=== PATIENT | female | born 1995 | race Caucasian/White ===

== ENCOUNTER 2016-05-25 18:17 | Emergency (ER) | payer OTHER ==
[2016-05-25 19:59] LABS: BASO # 0.1 K/mm3 (0.0-0.2); BASO % 1.6 % (0.0-1.0); EOS # 0.1 K/mm3 (0.0-0.50); EOS % 1.7 % (0.0-3.0); LARGE UNSTAINED CELL # 0.1 K/mm3 (0.0-0.4); LARGE UNSTAINED CELL % 1.8 % (0.0-4.0); LYMPH # 2.4 K/mm3 (1.5-6.5); LYMPH % 28.2 % (24.0-44.0); MEAN CORPUSCULAR HEMOGLOBIN 28.8 pg (27.0-33.0); MEAN CORPUSCULAR HGB CONC 33.7 g/dl (32.0-36.5); MEAN CORPUSCULAR VOLUME 85.2 fl (80.0-96.0); MONO # 0.4 K/mm3 (0.0-0.8); MONO % 4.7 % (0.0-5.0); NEUTROPHILS # 4.9 K/mm3 (1.8-7.7); NEUTROPHILS % 62.1 % (36.0-66.0); PLATELET COUNT, AUTOMATED 317 k/mm3 (150-450); WHITE BLOOD COUNT 7.9 K/mm3 (4.0-10.0)
[2016-05-25 20:28] LABS: ANION GAP 9 MEQ/L (8-16); BLOOD UREA NITROGEN 8 MG/DL (7-18); CALCIUM LEVEL 9.1 MG/DL (8.5-10.1); CARBON DIOXIDE LEVEL 26 MEQ/L (21-32); CHLORIDE LEVEL 105 MEQ/L (98-107); GLUCOSE, FASTING 93 MG/DL (70-105); HCG, SERUM QUANTITATIVE 643 MIU/ML; POTASSIUM SERUM 3.6 MEQ/L (3.5-5.1); SODIUM LEVEL 140 MEQ/L (136-145)
--- NOTE | 2016-05-25 20:40 | REPUSA ---
Clinical history: bleeding. Findings: Real-time transabdominal ultrasound images of the pelvis were obtained. An anteverted uteru s is noted, measuring 8.1 x 4.4 x 6.1 cm. The uterus demonstrates normal echotexture and echogenicity . There is an intrauterine gestational sac with a mean sac diameter of 3.4 mm. No pole or yolk sac is identified at this time. There is no evidence of a subchorionic hemorrhage. The right ovary me asures 3.8 x 2.9 x 2.5 cm. The left ovary measures 2.4 x 2.0 x 2.1 cm. No adnexal masses are seen. Co apolinar Doppler flow is seen within both ovaries. There is trace amount of free fluid. Impression: Intrauterine gestational sac measuring 5 weeks by ultrasound measurements. No pole or yolk sac is identified at this time. The findings likely suggesting early , although miss ed an ectopic cannot completely be excluded. Follow-up with serial serum beta hCG levels is recommended for further evaluation.
--- NOTE | 2016-05-26 00:18 | EDDOCDS ---
Physician Documentation [facility] Name: Rebekah Soto Age: 20 yrs Sex: Female : 1995 Arrival Date: 05/25/2016 Time: 18:17 Bed I7 Private MD: Other - Complete Info On Cds Disposition: 05/25/16 22:33 Discharged to Home/Self Care. Impression: Threatened . - Condition is Stable. - Discharge Instructions: Threatened Miscarriage, Pelvic Rest. - Medication Reconciliation, Local Pharmacy Hours form. - Follow up: Raymundo Dickey OB; When: Tomorrow; Reason: Recheck today's complaints, Continuance of care. - Problem is new. - Symptoms have improved. - Notes: CALL RAYMUNDO DICKEY OB TOMORROW, TELL THE NURSE THAT YOU WERE SEEN IN THE ER, DR AVENDAÑO WAS CONSULTED. YOU ARE TO HAVE A STAT QUANT HCG DRAWN ON 05/28/16 IN THE AM AT [facility] AND THEN HAVE A FOLLOW UP APPOINTMENT ON 05/28/16 IN THE AFTERNOON WITH RAYMUNDO DICKEY OB. RETURN TO THE ER IF BLEEDING INTENSIFIES, INCREASED PAIN OR OTHER CONCERNING SYMPTOMS ARISE Historical: - Allergies: no known allergies; - Home Meds: 1. vits Unknown daily - PMHx: Migraines; - PSHx: none; - Social history: Smoking status: Patient/guardian denies using No barriers to communication noted, The patient speaks fluent [place]. - Family history: Not pertinent. - : The pt / caregiver states he / she is not on anticoagulants. Home medication list is obtained from the patient. - Exposure Risk Screening:: None identified. 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 6 in. (167.64 cm) (R); Pain 3/10; 22:54 BP 128 / 85; Pulse 99; Resp 18; Temp 98.1(O); Pulse Ox 100% on R/A; Pain 0/10; kb5 05/26 00:16 BP 137 / 92; Pulse 110; Resp 16; Temp 97.8(O); Pulse Ox 98% on R/A; Pain 0/10; jmb 05/25 18:19 Body Mass Index 26.63 (74.84 kg, 167.64 cm) gr2 MDM: 05/25 19:25 IV Saline Lock ordered. ck7 19:25 NS 0.9% 1000 ml IV at bolus once ordered. ck7 19:25 Set up pelvic ordered. ck7 19:25 CBC with Diff Ordered. EDMS 19:25 MED Profile Ordered. EDMS 19:25 Type & Screen Ordered. EDMS 19:25 UA Ordered. EDMS 19:26 Urine Culture Ordered. EDMS 19:26 Hcg, Serum Quantitative Ordered. EDMS 19:26 GC & Chlamydia Amplification Ordered. EDMS 19:26 Wet Prep Ordered. EDMS 19:27 US 1st trimester Ordered. EDMS 20:17 TRANSVAGINAL US Ordered. EDMS 20:19 DUPLEX SCAN LIMITED (DOPPLER) Ordered. EDMS 20:38 Financial registration complete. gjb 21:53 CBC with Diff Reviewed. ck7 21:53 UA Reviewed. ck7 21:53 MED Profile Reviewed. ck7 21:53 Type & Screen Reviewed. ck7 21:53 Hcg, Serum Quantitative Reviewed. ck7 21:53 Wet Prep Reviewed. ck7 21:53 US 1st trimester Reviewed. ck7 21:54 Recheck Vital Signs, perform reassessment and enter into [employer] ordered. ck7 22:07 -RhoGAM Ultra-Filtered Plus 300 mcg IM once ordered. ck7 22:24 [facility] Payment Agreement was scanned into [employer] and attached to record. gjb 23:06 RHOGAM Ordered. EDMS Administered Medications: 19:45 Drug: NS 0.9% 1000 ml [sodium chloride 0.9 % intravenous solution] Route: IV; Rate: jmb bolus; Site: left antecubital; 21:26 Follow up: IV Status: Completed infusion; IV Intake: 1000ml ms18 05/26 00:16 Drug: -RhoGAM Ultra-Filtered Plus 300 mcg [RhoGAM Ultra-Filtered PLUS 1,500 unit (300 jmb mcg) intramuscular syringe (300 mcg)] Route: IM; Site: right gluteus; Signatures: Dispatcher [employer] EDMS Alina Wen RN RN dls Kwaczala, Christopher, RPA-C RPA-Cck7 Deven Castillo,JUNG RN Jayshree Magaña Mallory RN [id number] The chart was reviewed and I authenticate all verbal orders and agree with the evaluation and treatment provided.Attachments: 05/25 22:24 [facility] Payment Agreement hannah MTDD
--- NOTE | 2016-05-26 00:18 | EDDOCDS ---
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 Risk factors: The patient reports no loss of conciousness prior to arrival. This patient has not had a hysterectomy. This patient has not begun menopause. Adult Sepsis Screening: The patient does not have new or worsening altered mentation. Patient's respiratory rate is less than 22. Systolic blood pressure is greater than 100. Patient has a qSOFA score of 0- Negative Sepsis Screen. Suicide/Homicide risk assessment- the patient denies having any suicidal and/or homicidal ideations and does not present with any other emotional, behavioral or mental health complaints. Status: The patient is a dependent. Transition of care: patient was not received from another setting of care. 18:21 Acuity: JAMESON Level 3 dls 18:21 Method Of Arrival: Walkin/Carried/Asstd dls Triage Assessment: 18:23 General: Appears in no apparent distress, well developed, well nourished, well groomed, dls Behavior is cooperative. Pain: Denies pain. Pain. HIV screening NA for this visit Offered previously. : Reports vaginal bleeding that is brown. 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 vits Unknown daily - PMHx: Migraines; - PSHx: none; - Social history: Smoking status: Patient/guardian denies using No barriers to communication noted, The patient speaks fluent [place]. - Family history: Not pertinent. - : The pt / caregiver states he / she is not on anticoagulants. Home medication list is obtained from the patient. - Exposure Risk Screening:: None identified. Screenin:46 Screening information is obtained from the patient. Fall risk: No risks identified. jmb Assistance ADL's: requires no assistance with activities of daily living. Abuse/DV Screen: The patient / caregiver reports he/she is: not in a situation that causes fear, pain or injury. Nutritional screening: No deficits noted. home support is adequate. 05/26 00:14 Advance Directives: Currently, there is no health care proxy. There is no active DNR jmb order. There is no living will. There is no Power of Program Planner. Assessment: 05/25 19:46 General: Appears in no apparent distress, comfortable, Behavior is appropriate for age, jmb cooperative. Pain: Denies pain. Neurological: Level of Consciousness is awake, alert, obeys commands, Oriented to person, place, time, Family Services Assistant are equal bilaterally Speech is normal, Facial symmetry appears normal, Facial symmetry: tongue is midline. Cardiovascular: Capillary refill < 3 seconds Heart tones present Pulses are all present. Rhythm is regular. Respiratory: Airway is patent Respiratory effort is even, unlabored, Respiratory pattern is regular, symmetrical, Breath sounds are clear bilaterally. GI: Abdomen is non- distended Bowel sounds present X 4 quads. Abd is soft X 4 quads. : Patient reports vaginal bleeding. Derm: Skin is pink, warm & dry. Musculoskeletal: Range of motion intact in all extremities. 20:46 General: Appears in no apparent distress, comfortable, Behavior is appropriate for age, jmb cooperative, Smells of. Neurological: Level of Consciousness is awake, alert, obeys commands, Oriented to person, place, time. Respiratory: Airway is patent Respiratory effort is even, unlabored, Respiratory pattern is regular, symmetrical. 21:30 General: Appears in no apparent distress, comfortable, Behavior is appropriate for age, jmb cooperative, Patient sitting on stretcher with friend at bedside. NO complaints voiced at this time. . Neurological: Level of Consciousness is awake, alert, obeys commands, Oriented to person, place, time. Respiratory: Airway is patent Respiratory effort is even, unlabored, Respiratory pattern is regular, symmetrical. 22:00 General: Appears in no apparent distress, comfortable, Behavior is appropriate for age, jmb cooperative. Neurological: Level of Consciousness is awake, alert, obeys commands, Oriented to person, place, time, Speech is normal. Cardiovascular: Capillary refill < 3 seconds Heart tones S1 S2 present Pulses are all present. Rhythm is regular. Respiratory: Airway is patent Respiratory effort is even, unlabored, Respiratory pattern is regular, symmetrical, Breath sounds are clear bilaterally. GI: Abdomen is non- distended Bowel sounds present X 4 quads. Abd is soft X 4 quads. Derm: Skin is pink, warm & dry. Musculoskeletal: Range of motion intact in all extremities. 05/26 00:14 General: Patient instructed on discharge instructions. Patient asked if there were any [facility] questions regarding discharge, patient stated no. IV discontinued per hospital policy. Patient signed discharge instructions. Patient discharged in stable condition. . Vital Signs: 05/25 18:19 BP 142 / 84; Pulse 108; Resp 18 S; Temp 97.1(O); Pulse Ox 100% on R/A; Weight 74.84 kg gr2 (R); Height 5 ft. 6 in. (167.64 cm) (R); Pain 3/10; 22:54 BP 128 / 85; Pulse 99; Resp 18; Temp 98.1(O); Pulse Ox 100% on R/A; Pain 0/10; kb5 05/26 00:16 BP 137 / 92; Pulse 110; Resp 16; Temp 97.8(O); Pulse Ox 98% on R/A; Pain 0/10; jmb 05/25 18:19 Body Mass Index 26.63 (74.84 kg, 167.64 cm) gr2 Vitals: 05/25 18:19 Log In Time: May 25, 2016 at 18:19. gr2 ED Course: 18:18 Patient visited by Concha Pascual. gr2 18:18 NO PRIMARY PHYSICIAN, . is Private Physician. gr2 18:18 Other - Complete Info On Cds is Private Physician. gr2 18:18 Patient moved to Waiting gr2 18:20 Patient visited by Concha Pascual. gr2 18:20 Patient moved to Pre RCE gr2 18:22 Triage Initiated dls 18:57 Patient moved to Triage 3 ms18 18:57 Patient moved to Pre RCE ms18 19:11 Patient moved to Triage 2 ms18 19:12 Dawson Armstrong RPA-C is PHCP. ck7 19:12 [place] DO is Attending Physician. ck7 19:12 Patient visited by Dawson Armstrong RPA-C. ck7 19:27 Patient moved to I b 19:45 Patient visited by Aron Cleary PCA. kb5 19:45 CBC with Diff Sent. deweyb 19:45 MED Profile Sent. patricia 19:45 Type & Screen Sent. patricia 19:46 The patient / caregiver is instructed regarding the plan of care and ED course. patricia 19:46 UA Sent. patricia 19:46 Urine Culture Sent. patricia 19:46 Hcg, Serum Quantitative Sent. patricia 19:46 Inserted saline lock: 20 gauge in left antecubital area and blood collected. The b patient tolerated the procedure well. Labs drawn. (by ED staff). Sent per order to lab. Urine collected. Clean catch specimen. 19:47 Patient visited by Deven Castillo,JUNG. jmb 19:58 Patient moved to Ultrasound dmg 20:22 Patient moved to I7 / dmg 20:32 Patient visited by Aron Cleary PCA. kb5 20:53 US 1st trimester Returned. EDMS 21:12 Patient visited by Dawson Armstrong RPA-C. ck7 21:20 Assist provider with pelvic exam: Set up pelvic tray. Specimens sent to lab. Performed ms18 by Dawson BUCKLEY Patient tolerated well. 21:24 Patient visited by Catarina Chaudhari RN. ms18 21:24 Wet Prep Sent. ms18 21:58 Patient visited by Dawson Armstrong RPA-C. ck7 22:03 Patient visited by Deven Castillo RN. jmb 22:24 [facility] Payment Agreement was scanned into [employer] and attached to record. gjb 22:32 Raymundo Bond, OB is Referral Physician. ck7 22:54 Patient visited by Aron Cleary PCA. kb5 05/26 00:14 Discontinued lock intact, bleeding controlled, pressure dressing applied, No patricia redness/swelling at site. 00:16 RHOGAM Sent. patricia Administered Medications: 05/25 19:45 Drug: NS 0.9% 1000 ml [sodium chloride 0.9 % intravenous solution] Route: IV; Rate: jmb bolus; Site: left antecubital; 21:26 Follow up: IV Status: Completed infusion; IV Intake: 1000ml ms18 05/26 00:16 Drug: -RhoGAM Ultra-Filtered Plus 300 mcg [RhoGAM Ultra-Filtered PLUS 1,500 unit (300 jmb mcg) intramuscular syringe (300 mcg)] Route: IM; Site: right gluteus; Intake: 05/25 21:26 IV: 1000.00ml; Total: 1000.00ml. ms18 Order Results: Lab Order: CBC with Diff; SPEC'M 05/25/16 19:42 Test: WHITE BLOOD COUNT; Value: 7.9; Range: 4.0-10.0; Units: K/mm3; Status: F Test: RED BLOOD COUNT; Value: 4.66; Range: 4.00-5.40; Units: M/mm3; Status: F Test: HEMOGLOBIN; Value: 13.4; Range: 12.0-16.0; Units: g/dl; Status: F Test: HEMATOCRIT; Value: 39.7; Range: 36.0-47.0; Units: %; Status: F Test: MEAN CORPUSCULAR VOLUME; Value: 85.2; Range: 80.0-96.0; Units: fl; Status: F Test: MEAN CORPUSCULAR HEMOGLOBIN; Value: 28.8; Range: 27.0-33.0; Units: pg; Status: F Test: MEAN CORPUSCULAR HGB CONC; Value: 33.7; Range: 32.0-36.5; Units: g/dl; Status: F Test: RED CELL DISTRIBUTION WIDTH; Value: 14.0; Range: 11.5-14.5; Units: %; Status: F Test: PLATELET COUNT, AUTOMATED; Value: 317; Range: 150-450; Units: k/mm3; Status: F Test: NEUTROPHILS %; Value: 62.1; Range: 36.0-66.0; Units: %; Status: F Test: LYMPH %; Value: 28.2; Range: 24.0-44.0; Units: %; Status: F Test: MONO %; Value: 4.7; Range: 0.0-5.0; Units: %; Status: F Test: EOS %; Value: 1.7; Range: 0.0-3.0; Units: %; Status: F Test: BASO %; Value: 1.6; Range: 0.0-1.0; Abnormal: Above high normal; Units: %; Status: F Test: LARGE UNSTAINED CELL %; Value: 1.8; Range: 0.0-4.0; Units: %; Status: F Test: NEUTROPHILS #; Value: 4.9; Range: 1.8-7.7; Units: K/mm3; Status: F Test: LYMPH #; Value: 2.4; Range: 1.5-6.5; Units: K/mm3; Status: F Test: MONO #; Value: 0.4; Range: 0.0-0.8; Units: K/mm3; Status: F Test: EOS #; Value: 0.1; Range: 0.0-0.50; Units: K/mm3; Status: F Test: BASO #; Value: 0.1; Range: 0.0-0.2; Units: K/mm3; Status: F Test: LARGE UNSTAINED CELL #; Value: 0.1; Range: 0.0-0.4; Units: K/mm3; Status: F Lab Order: MED Profile; SPEC'M 05/25/16 19:42 Test: GLUCOSE, FASTING; Value: 93; Range: 70-105; Units: MG/DL; Status: F Test: BLOOD UREA NITROGEN; Value: 8; Range: 7-18; Units: MG/DL; Status: F Test: CREATININE FOR GFR; Value: 0.70; Range: 0.55-1.02; Units: MG/DL; Status: F Test: SODIUM LEVEL; Value: 140; Range: 136-145; Units: MEQ/L; Status: F Test: POTASSIUM SERUM; Value: 3.6; Range: 3.5-5.1; Units: MEQ/L; Status: F Test: CHLORIDE LEVEL; Value: 105; Range: 98-107; Units: MEQ/L; Status: F Test: CARBON DIOXIDE LEVEL; Value: 26; Range: 21-32; Units: MEQ/L; Status: F Test: ANION GAP; Value: 9; Range: 8-16; Units: MEQ/L; Status: F Test: CALCIUM LEVEL; Value: 9.1; Range: 8.5-10.1; Units: MG/DL; Status: F Lab Order: Type & Screen; SPEC'05/25/16 19:42 Test: AB SCREEN (INDIRECT TRACIE)GEL; Value: NEGATIVE; Status: F Test: BLOOD TYPE; Value: A NEG; Status: F Test: AB SCREEN (INDIRECT TRACIE)GEL; Value: NEGATIVE; Status: F Lab Order: UA; SPEC'M 05/25/16 19:42 Test: APPEARANCE, URINE; Value: CLEAR; Range: CLEAR; Status: F Test: COLOR, URINE; Value: YELLOW; Range: YELLOW; Status: F Test: PH,URINE; Value: 7.0; Range: 5.0-9.0; Units: UNITS; Status: F Test: SPECIFIC GRAVITY URINE AUTO; Value: 1.010; Range: 1.002-1.035; Status: F Test: PROTEIN, URINE AUTO; Value: NEGATIVE; Range: NEGATIVE; Units: mg/dL; Status: F Test: GLUCOSE, URINE (UA) AUTO; Value: NEGATIVE; Range: NEGATIVE; Units: mg/dL; Status: F Test: KETONE, URINE AUTO; Value: NEGATIVE; Range: NEGATIVE; Units: mg/dL; Status: F Test: UROBILINOGEN, URINE AUTO; Value: 0.2; Range: 0.0-2.0; Units: mg/dL; Status: F Test: BILIRUBIN, URINE AUTO; Value: NEGATIVE; Range: NEGATIVE; Status: F Test: NITRITE, URINE AUTO; Value: NEGATIVE; Range: NEGATIVE; Status: F Test: LEUKOCYTE ESTERASE, URINE AUTO; Value: NEGATIVE; Range: NEGATIVE; Status: F Test: BLOOD, URINE BLOOD; Value: 3+; Range: NEGATIVE; Abnormal: Above high normal; Status: F Test: WBC, URINE AUTO; Value: 1; Range: 0-3; Units: /HPF; Status: F Test: RBC, URINE AUTO; Value: TNTC; Range: 0-3; Abnormal: Above high normal; Units: /HPF; Status: F Test: BACTERIA, URINE AUTO; Value: 1+; Range: NEGATIVE; Abnormal: Above high normal; Status: F Test: SQUAMOUS EPITHELIAL CELL UR AU; Value: 1; Range: 0-6; Units: /HPF; Status: F Test: MUCUS, URINE; Value: SMALL; Range: NEGATIVE; Status: F Test: HYALINE CAST, URINE AUTO; Value: 0; Range: 0-1; Units: /LPF; Status: F Lab Order: Hcg, Serum Quantitative; SPEC'M 05/25/16 19:42 Test: HCG, SERUM QUANTITATIVE; Value: 643; Units: MIU/ML; Status: F Test Note: ; GESTATIONAL AGE APPROXIMATE HCG RANGE (MIU/ML) 0.2-1 WEEK 5-50 1-2 WEEKS 50-500 2-3 WEEKS 100-5,000 3-4 WEEKS 500-10,000 4-5 WEEKS 1,000-50,000 5-6 WEEKS 10,000-100,000 6-8 WEEKS 15,000-200,000 2-3 MONTHS 10,000-100,000 NON FEMALES LESS THAN 3.0 Patient samples may contain human heterophilic antibodies that could react with immunoassays to give falsely elevated or depressed results. This assay has been designed to minimize interference from heterophilic antibodies. Elevated hCG levels have also been associated with trophoblastic disease and nontrophoblastic neoplasms. The possibility of having these diseases should be considered before a diagnosis of is made. This test is not intended for use as a surrogate marker for aiding in the diagnosis or monitoring the treatment of cancer patients. Siem[employer] PlayerPro methodology. Lab Order: Wet Prep; SPEC'M 05/25/16 21:14 Test: WET PREP; Value: WET PREP RESULT; Status: F Test: WET PREP; Value: MANY EPITHELIAL CELLS PRESENT; Status: F Test: WET PREP; Value: FEW WBC; Status: F Test: WET PREP; Value: MANY RBC; Status: F Test: WET PREP; Value: FEW SHORT RODS PRESENT; Status: F Radiology Order: US 1st trimester Test: US 1st trimester REASON FOR EXAMINATION: Bleeding; ; Clinical history: bleeding.; Findings: Real-time transabdominal ultrasound images of the pelvis were obtained. An anteverted uteru; s is noted, measuring 8.1 x 4.4 x 6.1 cm. The uterus demonstrates normal echotexture and echogenicity; . There is an intrauterine gestational sac with a mean sac diameter of 3.4 mm. No pole or yolk; sac is identified at this time. There is no evidence of a subchorionic hemorrhage. The right ovary me; asures 3.8 x 2.9 x 2.5 cm. The left ovary measures 2.4 x 2.0 x 2.1 cm. No adnexal masses are seen. Co; apolinar Doppler flow is seen within both ovaries. There is trace amount of free fluid.; Impression: Intrauterine gestational sac measuring 5 weeks by ultrasound measurements. No pole; or yolk sac is identified at this time. The findings likely suggesting early , although miss; ed an ectopic cannot completely be excluded. Follow-up with serial serum beta hCG; levels is recommended for further evaluation.; ; Outcome: 22:33 Discharge ordered by Provider. ck7 05/26 00:14 Discharge Assessment: Patient awake, alert and oriented x 3. No cognitive and/or jmb functional deficits noted. Patient verbalized understanding of disposition instructions. Patient awake and alert. obeys commands, Oriented to person, place and time. Patient verbalized understanding of disposition instructions. Patient has no functional deficits. patient administered narcotics - no. The following High Risk Discharge criteria are identified: None. Discharged to home ambulatory, with significant other. Condition: stable Condition: improved. Discharge instructions given to patient, Instructed on discharge instructions, follow up and referral plans. Demonstrated understanding of instructions, Pt was receptive of discharge instructions/ teaching. Ultrasound Study completed. Property sent home with patient. 00:17 Patient left the ED. patricia Signatures: Dispatcher [employer] EDAlina Thomas, RN Marija Burns Kristopher, PRACTICE SUPPORT SPECIALIST PRACTICE SUPPORT SPECIALIST kb5 Dawson Armstrong, RPA-C RPA-Cck7 Concha Pascual gr2 Deven Castillo RN RN jmb Smith, Mallory, RN RN [id number] Jayshree Paula MTDD
--- NOTE | 2016-05-28 01:18 | EDDOCDS ---
Nurse's Notes 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 Risk factors: The patient reports no loss of conciousness prior to arrival. This patient has not had a hysterectomy. This patient has not begun menopause. Adult Sepsis Screening: The patient does not have new or worsening altered mentation. Patient's respiratory rate is less than 22. Systolic blood pressure is greater than 100. Patient has a qSOFA score of 0- Negative Sepsis Screen. Suicide/Homicide risk assessment- the patient denies having any suicidal and/or homicidal ideations and does not present with any other emotional, behavioral or mental health complaints. Status: The patient is a dependent. Transition of care: patient was not received from another setting of care. 18:21 Acuity: JAMESON Level 3 dls 18:21 Method Of Arrival: Walkin/Carried/Asstd dls Triage Assessment: 18:23 General: Appears in no apparent distress, well developed, well nourished, well groomed, dls Behavior is cooperative. Pain: Denies pain. Pain. HIV screening NA for this visit Offered previously. : Reports vaginal bleeding that is brown. 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 vits Unknown daily - PMHx: Migraines; - PSHx: none; - Social history: Smoking status: Patient/guardian denies using No barriers to communication noted, The patient speaks fluent Tristanian. - Family history: Not pertinent. - : The pt / caregiver states he / she is not on anticoagulants. Home medication list is obtained from the patient. - Exposure Risk Screening:: None identified. Screenin:46 Screening information is obtained from the patient. Fall risk: No risks identified. jmb Assistance ADL's: requires no assistance with activities of daily living. Abuse/DV Screen: The patient / caregiver reports he/she is: not in a situation that causes fear, pain or injury. Nutritional screening: No deficits noted. home support is adequate. 05/26 00:14 Advance Directives: Currently, there is no health care proxy. There is no active DNR jmb order. There is no living will. There is no Power of Filler Shredder Machine. Assessment: 05/25 19:46 General: Appears in no apparent distress, comfortable, Behavior is appropriate for age, jmb cooperative. Pain: Denies pain. Neurological: Level of Consciousness is awake, alert, obeys commands, Oriented to person, place, time, Sweat Band Sewer are equal bilaterally Speech is normal, Facial symmetry appears normal, Facial symmetry: tongue is midline. Cardiovascular: Capillary refill < 3 seconds Heart tones present Pulses are all present. Rhythm is regular. Respiratory: Airway is patent Respiratory effort is even, unlabored, Respiratory pattern is regular, symmetrical, Breath sounds are clear bilaterally. GI: Abdomen is non- distended Bowel sounds present X 4 quads. Abd is soft X 4 quads. : Patient reports vaginal bleeding. Derm: Skin is pink, warm & dry. Musculoskeletal: Range of motion intact in all extremities. 20:46 General: Appears in no apparent distress, comfortable, Behavior is appropriate for age, jmb cooperative, Smells of. Neurological: Level of Consciousness is awake, alert, obeys commands, Oriented to person, place, time. Respiratory: Airway is patent Respiratory effort is even, unlabored, Respiratory pattern is regular, symmetrical. 21:30 General: Appears in no apparent distress, comfortable, Behavior is appropriate for age, jmb cooperative, Patient sitting on stretcher with friend at bedside. NO complaints voiced at this time. . Neurological: Level of Consciousness is awake, alert, obeys commands, Oriented to person, place, time. Respiratory: Airway is patent Respiratory effort is even, unlabored, Respiratory pattern is regular, symmetrical. 22:00 General: Appears in no apparent distress, comfortable, Behavior is appropriate for age, jmb cooperative. Neurological: Level of Consciousness is awake, alert, obeys commands, Oriented to person, place, time, Speech is normal. Cardiovascular: Capillary refill < 3 seconds Heart tones S1 S2 present Pulses are all present. Rhythm is regular. Respiratory: Airway is patent Respiratory effort is even, unlabored, Respiratory pattern is regular, symmetrical, Breath sounds are clear bilaterally. GI: Abdomen is non- distended Bowel sounds present X 4 quads. Abd is soft X 4 quads. Derm: Skin is pink, warm & dry. Musculoskeletal: Range of motion intact in all extremities. 05/26 00:14 General: Patient instructed on discharge instructions. Patient asked if there were any b questions regarding discharge, patient stated no. IV discontinued per hospital policy. Patient signed discharge instructions. Patient discharged in stable condition. . 00:16 General: Patient administered Rhogam by Raffaele Lehman RN after two nurse verification. b Patient consent signed and confirmed by provider. . Vital Signs: 05/25 18:19 BP 142 / 84; Pulse 108; Resp 18 S; Temp 97.1(O); Pulse Ox 100% on R/A; Weight 74.84 kg gr2 (R); Height 5 ft. 6 in. (167.64 cm) (R); Pain 3/10; 22:54 BP 128 / 85; Pulse 99; Resp 18; Temp 98.1(O); Pulse Ox 100% on R/A; Pain 0/10; kb5 05/26 00:16 BP 137 / 92; Pulse 110; Resp 16; Temp 97.8(O); Pulse Ox 98% on R/A; Pain 0/10; jmb 05/25 18:19 Body Mass Index 26.63 (74.84 kg, 167.64 cm) gr2 Vitals: 05/25 18:19 Log In Time: May 25, 2016 at 18:19. gr2 ED Course: 18:18 Patient visited by Concha Pascual. gr2 18:18 NO PRIMARY PHYSICIAN, . is Private Physician. gr2 18:18 Other - Complete Info On Cds is Private Physician. gr2 18:18 Patient moved to Waiting gr2 18:20 Patient visited by Concha Pascual. gr2 18:20 Patient moved to Pre RCE gr2 18:22 Triage Initiated dls 18:57 Patient moved to Triage 3 ms18 18:57 Patient moved to Pre RCE ms18 19:11 Patient moved to Triage 2 ms18 19:12 [facility] ck7 19:12 [place] DO is Attending Physician. ck7 19:12 Patient visited by Dawson Armstrong RPA-C. ck7 19:27 Patient moved to I jmb 19:45 Patient visited by Aron Cleary PCA. kb5 19:45 CBC with Diff Sent. patricia 19:45 MED Profile Sent. deweyb 19:45 Type & Screen Sent. patricia 19:46 The patient / caregiver is instructed regarding the plan of care and ED course. patricia 19:46 UA Sent. patricia 19:46 Urine Culture Sent. patricia 19:46 Hcg, Serum Quantitative Sent. patricia 19:46 Inserted saline lock: 20 gauge in left antecubital area and blood collected. The annia patient tolerated the procedure well. Labs drawn. (by ED staff). Sent per order to lab. Urine collected. Clean catch specimen. 19:47 Patient visited by Deven Castillo,JUNG. jmb 19:58 Patient moved to Ultrasound dmg 20:22 Patient moved to I dmg 20:32 Patient visited by Aron Cleary PCA. kb5 20:53 US 1st trimester Returned. EDMS 21:12 Patient visited by Dawson Armstrong RPA-C. ck7 21:20 Assist provider with pelvic exam: Set up pelvic tray. Specimens sent to lab. Performed ms18 by Dawson BUCKLEY Patient tolerated well. 21:24 Patient visited by Catarina Chaudhari RN. ms18 21:24 Wet Prep Sent. ms18 21:58 Patient visited by Dawson Armstrong RPA-C. ck7 22:03 Patient visited by Deven Castillo RN. jmb 22:24 [facility] Payment Agreement was scanned into [employer] and attached to record. gjb 22:32 [place], OB is Referral Physician. ck7 22:54 Patient visited by Aron Cleary PCA. kb5 05/26 00:14 Discontinued lock intact, bleeding controlled, pressure dressing applied, No patricia redness/swelling at site. 00:16 RHOGAM Sent. patricia 11:20 T-Sheet-- Draft Copy was scanned into [employer] and attached to record. gb 11:20 Consents was scanned into [employer] and attached to record. gb Administered Medications: 05/25 19:45 Drug: NS 0.9% 1000 ml [sodium chloride 0.9 % intravenous solution] Route: IV; Rate: jmb bolus; Site: left antecubital; 21:26 Follow up: IV Status: Completed infusion; IV Intake: 1000ml ms18 05/26 00:16 Drug: -RhoGAM Ultra-Filtered Plus 300 mcg [RhoGAM Ultra-Filtered PLUS 1,500 unit (300 jmb mcg) intramuscular syringe (300 mcg)] Route: IM; Site: right gluteus; Attachments: 11:20 Consents gb Intake: 05/25 21:26 IV: 1000.00ml; Total: 1000.00ml. ms18 Order Results: Lab Order: CBC with Diff; SPEC'M 05/25/16 19:42 Test: WHITE BLOOD COUNT; Value: 7.9; Range: 4.0-10.0; Units: K/mm3; Status: F Test: RED BLOOD COUNT; Value: 4.66; Range: 4.00-5.40; Units: M/mm3; Status: F Test: HEMOGLOBIN; Value: 13.4; Range: 12.0-16.0; Units: g/dl; Status: F Test: HEMATOCRIT; Value: 39.7; Range: 36.0-47.0; Units: %; Status: F Test: MEAN CORPUSCULAR VOLUME; Value: 85.2; Range: 80.0-96.0; Units: fl; Status: F Test: MEAN CORPUSCULAR HEMOGLOBIN; Value: 28.8; Range: 27.0-33.0; Units: pg; Status: F Test: MEAN CORPUSCULAR HGB CONC; Value: 33.7; Range: 32.0-36.5; Units: g/dl; Status: F Test: RED CELL DISTRIBUTION WIDTH; Value: 14.0; Range: 11.5-14.5; Units: %; Status: F Test: PLATELET COUNT, AUTOMATED; Value: 317; Range: 150-450; Units: k/mm3; Status: F Test: NEUTROPHILS %; Value: 62.1; Range: 36.0-66.0; Units: %; Status: F Test: LYMPH %; Value: 28.2; Range: 24.0-44.0; Units: %; Status: F Test: MONO %; Value: 4.7; Range: 0.0-5.0; Units: %; Status: F Test: EOS %; Value: 1.7; Range: 0.0-3.0; Units: %; Status: F Test: BASO %; Value: 1.6; Range: 0.0-1.0; Abnormal: Above high normal; Units: %; Status: F Test: LARGE UNSTAINED CELL %; Value: 1.8; Range: 0.0-4.0; Units: %; Status: F Test: NEUTROPHILS #; Value: 4.9; Range: 1.8-7.7; Units: K/mm3; Status: F Test: LYMPH #; Value: 2.4; Range: 1.5-6.5; Units: K/mm3; Status: F Test: MONO #; Value: 0.4; Range: 0.0-0.8; Units: K/mm3; Status: F Test: EOS #; Value: 0.1; Range: 0.0-0.50; Units: K/mm3; Status: F Test: BASO #; Value: 0.1; Range: 0.0-0.2; Units: K/mm3; Status: F Test: LARGE UNSTAINED CELL #; Value: 0.1; Range: 0.0-0.4; Units: K/mm3; Status: F Lab Order: [facility]; SPEC'M 05/25/16 19:42 Test: GLUCOSE, FASTING; Value: 93; Range: 70-105; Units: MG/DL; Status: F Test: BLOOD UREA NITROGEN; Value: 8; Range: 7-18; Units: MG/DL; Status: F Test: CREATININE FOR GFR; Value: 0.70; Range: 0.55-1.02; Units: MG/DL; Status: F Test: SODIUM LEVEL; Value: 140; Range: 136-145; Units: MEQ/L; Status: F Test: POTASSIUM SERUM; Value: 3.6; Range: 3.5-5.1; Units: MEQ/L; Status: F Test: CHLORIDE LEVEL; Value: 105; Range: 98-107; Units: MEQ/L; Status: F Test: CARBON DIOXIDE LEVEL; Value: 26; Range: 21-32; Units: MEQ/L; Status: F Test: ANION GAP; Value: 9; Range: 8-16; Units: MEQ/L; Status: F Test: CALCIUM LEVEL; Value: 9.1; Range: 8.5-10.1; Units: MG/DL; Status: F Lab Order: Type & Screen; SPEC'M 05/25/16 19:42 Test: AB SCREEN (INDIRECT TRACIE)GEL; Value: NEGATIVE; Status: F Test: BLOOD TYPE; Value: A NEG; Status: F Test: AB SCREEN (INDIRECT TRACIE)GEL; Value: NEGATIVE; Status: F Lab Order: UA; SPEC'M 05/25/16 19:42 Test: APPEARANCE, URINE; Value: CLEAR; Range: CLEAR; Status: F Test: COLOR, URINE; Value: YELLOW; Range: YELLOW; Status: F Test: PH,URINE; Value: 7.0; Range: 5.0-9.0; Units: UNITS; Status: F Test: SPECIFIC GRAVITY URINE AUTO; Value: 1.010; Range: 1.002-1.035; Status: F Test: PROTEIN, URINE AUTO; Value: NEGATIVE; Range: NEGATIVE; Units: mg/dL; Status: F Test: GLUCOSE, URINE (UA) AUTO; Value: NEGATIVE; Range: NEGATIVE; Units: mg/dL; Status: F Test: KETONE, URINE AUTO; Value: NEGATIVE; Range: NEGATIVE; Units: mg/dL; Status: F Test: UROBILINOGEN, URINE AUTO; Value: 0.2; Range: 0.0-2.0; Units: mg/dL; Status: F Test: BILIRUBIN, URINE AUTO; Value: NEGATIVE; Range: NEGATIVE; Status: F Test: NITRITE, URINE AUTO; Value: NEGATIVE; Range: NEGATIVE; Status: F Test: LEUKOCYTE ESTERASE, URINE AUTO; Value: NEGATIVE; Range: NEGATIVE; Status: F Test: BLOOD, URINE BLOOD; Value: 3+; Range: NEGATIVE; Abnormal: Above high normal; Status: F Test: WBC, URINE AUTO; Value: 1; Range: 0-3; Units: /HPF; Status: F Test: RBC, URINE AUTO; Value: TNTC; Range: 0-3; Abnormal: Above high normal; Units: /HPF; Status: F Test: BACTERIA, URINE AUTO; Value: 1+; Range: NEGATIVE; Abnormal: Above high normal; Status: F Test: SQUAMOUS EPITHELIAL CELL UR AU; Value: 1; Range: 0-6; Units: /HPF; Status: F Test: MUCUS, URINE; Value: SMALL; Range: NEGATIVE; Status: F Test: HYALINE CAST, URINE AUTO; Value: 0; Range: 0-1; Units: /LPF; Status: F Lab Order: Urine Culture; SPEC'M 05/25/16 19:42 Test: URINE CULTURE; Value: <EXTERNAL COMMENT eCWMed> FULL REPORT IN LAB NOTES (eCW and Medent).; Status: F Test: URINE CULTURE; Value: URINE CULTURE RESULT; Status: F Test: URINE CULTURE; Value: NO GROWTH CLINICAL SIGNIFICANCE 2 OR MORE ORGANISMS; Status: F Lab Order: Hcg, Serum Quantitative; SPEC'M 05/25/16 19:42 Test: HCG, SERUM QUANTITATIVE; Value: 643; Units: MIU/ML; Status: F Test Note: ; GESTATIONAL AGE APPROXIMATE HCG RANGE (MIU/ML) 0.2-1 WEEK 5-50 1-2 WEEKS 50-500 2-3 WEEKS 100-5,000 3-4 WEEKS 500-10,000 4-5 WEEKS 1,000-50,000 5-6 WEEKS 10,000-100,000 6-8 WEEKS 15,000-200,000 2-3 MONTHS 10,000-100,000 NON FEMALES LESS THAN 3.0 Patient samples may contain human heterophilic antibodies that could react with immunoassays to give falsely elevated or depressed results. This assay has been designed to minimize interference from heterophilic antibodies. Elevated hCG levels have also been associated with trophoblastic disease and nontrophoblastic neoplasms. The possibility of having these diseases should be considered before a diagnosis of is made. This test is not intended for use as a surrogate marker for aiding in the diagnosis or monitoring the treatment of cancer patients. Siemens LP33.TV methodology. Lab Order: GC & Chlamydia Amplification; SPEC'M 05/25/16 21:14 Test: CHLAMYDIA DNA AMPLIFICATION; Value: NEGATIVE; Range: NEGATIVE; Status: F Test: GC DNA AMPLIFICATION; Value: NEGATIVE; Range: NEGATIVE; Status: F Lab Order: Wet Prep; SPEC'M 05/25/16 21:14 Test: WET PREP; Value: WET PREP RESULT; Status: F Test: WET PREP; Value: MANY EPITHELIAL CELLS PRESENT; Status: F Test: WET PREP; Value: FEW WBC; Status: F Test: WET PREP; Value: MANY RBC; Status: F Test: WET PREP; Value: FEW SHORT RODS PRESENT; Status: F Radiology Order: US 1st trimester Test: US 1st trimester REASON FOR EXAMINATION: Bleeding; ; Clinical history: bleeding.; Findings: Real-time transabdominal ultrasound images of the pelvis were obtained. An anteverted uteru; s is noted, measuring 8.1 x 4.4 x 6.1 cm. The uterus demonstrates normal echotexture and echogenicity; . There is an intrauterine gestational sac with a mean sac diameter of 3.4 mm. No pole or yolk; sac is identified at this time. There is no evidence of a subchorionic hemorrhage. The right ovary me; asures 3.8 x 2.9 x 2.5 cm. The left ovary measures 2.4 x 2.0 x 2.1 cm. No adnexal masses are seen. Co; apolinar Doppler flow is seen within both ovaries. There is trace amount of free fluid.; Impression: Intrauterine gestational sac measuring 5 weeks by ultrasound measurements. No pole; or yolk sac is identified at this time. The findings likely suggesting early , although miss; ed an ectopic cannot completely be excluded. Follow-up with serial serum beta hCG; levels is recommended for further evaluation.; ; Outcome: 22:33 Discharge ordered by Provider. ck7 05/26 00:14 Discharge Assessment: Patient awake, alert and oriented x 3. No cognitive and/or jmb functional deficits noted. Patient verbalized understanding of disposition instructions. Patient awake and alert. obeys commands, Oriented to person, place and time. Patient verbalized understanding of disposition instructions. Patient has no functional deficits. patient administered narcotics - no. The following High Risk Discharge criteria are identified: None. Discharged to home ambulatory, with significant other. Condition: stable Condition: improved. Discharge instructions given to patient, Instructed on discharge instructions, follow up and referral plans. Demonstrated understanding of instructions, Pt was receptive of discharge instructions/ teaching. Ultrasound Study completed. Property sent home with patient. 00:17 Patient left the ED. jmb Signatures: Dispatcher [employer] EDMS Alina Wen RN RN dls Gosia, Marija fullerg Елена, Mary Kate, Reg Reg gb Evin, Aron, SOCIAL MEDIA PROJECT MANAGER SOCIAL MEDIA PROJECT MANAGER kb5 Dawson Armstrong, RPA-C RPA-Cck7 Concha Pascual2 Deven Castillo RN RN Catarina Guardado RN RN ms18 Jayshree Paula Chart Complete MTDD
--- NOTE | 2016-05-28 01:18 | EDDOCDS ---
Physician Documentation [facility] Name: Rebekah Soto Age: 20 yrs Sex: Female : 1995 Arrival Date: 05/25/2016 Time: 18:17 Bed I7 Private MD: Other - Complete Info On Cds Disposition: 05/25/16 22:33 Discharged to Home/Self Care. Impression: Threatened . - Condition is Stable. - Discharge Instructions: Threatened Miscarriage, Pelvic Rest. - Medication Reconciliation, Local Pharmacy Hours form. - Follow up: [facility]; When: Tomorrow; Reason: Recheck today's complaints, Continuance of care. - Problem is new. - Symptoms have improved. - Notes: CALL [facility] TOMORROW, TELL THE NURSE THAT YOU WERE SEEN IN THE ER, DR AVENDAÑO WAS CONSULTED. YOU ARE TO HAVE A STAT QUANT HCG DRAWN ON 05/28/16 IN THE AM AT [facility] AND THEN HAVE A FOLLOW UP APPOINTMENT ON 05/28/16 IN THE AFTERNOON WITH [facility]IC[facility]. RETURN TO THE ER IF BLEEDING INTENSIFIES, INCREASED PAIN OR OTHER CONCERNING SYMPTOMS ARISE Historical: - Allergies: no known allergies; - Home Meds: 1. vits Unknown daily - PMHx: Migraines; - PSHx: none; - Social history: Smoking status: Patient/guardian denies using No barriers to communication noted, The patient speaks fluent French. - Family history: Not pertinent. - : The pt / caregiver states he / she is not on anticoagulants. Home medication list is obtained from the patient. - Exposure Risk Screening:: None identified. 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 6 in. (167.64 cm) (R); Pain 3/10; 22:54 BP 128 / 85; Pulse 99; Resp 18; Temp 98.1(O); Pulse Ox 100% on R/A; Pain 0/10; kb5 05/26 00:16 BP 137 / 92; Pulse 110; Resp 16; Temp 97.8(O); Pulse Ox 98% on R/A; Pain 0/10; jmb 05/25 18:19 Body Mass Index 26.63 (74.84 kg, 167.64 cm) gr2 MDM: 05/25 19:25 IV Saline Lock ordered. ck7 19:25 NS 0.9% 1000 ml IV at bolus once ordered. ck7 19:25 Set up pelvic ordered. ck7 19:25 CBC with Diff Ordered. EDMS 19:25 MED Profile Ordered. EDMS 19:25 Type & Screen Ordered. EDMS 19:25 UA Ordered. EDMS 19:26 Urine Culture Ordered. EDMS 19:26 Hcg, Serum Quantitative Ordered. EDMS 19:26 GC & Chlamydia Amplification Ordered. EDMS 19:26 Wet Prep Ordered. EDMS 19:27 US 1st trimester Ordered. EDMS 20:17 TRANSVAGINAL US Ordered. EDMS 20:19 DUPLEX SCAN LIMITED (DOPPLER) Ordered. EDMS 20:38 Financial registration complete. gjb 21:53 CBC with Diff Reviewed. ck7 21:53 UA Reviewed. ck7 21:53 MED Profile Reviewed. ck7 21:53 Type & Screen Reviewed. ck7 21:53 Hcg, Serum Quantitative Reviewed. ck7 21:53 Wet Prep Reviewed. ck7 21:53 US 1st trimester Reviewed. ck7 21:54 Recheck Vital Signs, perform reassessment and enter into [employer] ordered. ck7 22:07 -RhoGAM Ultra-Filtered Plus 300 mcg IM once ordered. ck7 22:24 [facility] [place] was scanned into [employer] and attached to record. gjb 23:06 RHOGAM Ordered. EDMS 05/26 11:20 T-Sheet-- Draft Copy was scanned into [employer] and attached to record. gb 11:20 Consents was scanned into [employer] and attached to record. gb Administered Medications: 05/25 19:45 Drug: NS 0.9% 1000 ml [sodium chloride 0.9 % intravenous solution] Route: IV; Rate: jmb bolus; Site: left antecubital; 21:26 Follow up: IV Status: Completed infusion; IV Intake: 1000ml ms18 05/26 00:16 Drug: -RhoGAM Ultra-Filtered Plus 300 mcg [RhoGAM Ultra-Filtered PLUS 1,500 unit (300 jmb mcg) intramuscular syringe (300 mcg)] Route: IM; Site: right gluteus; Signatures: Dispatcher [employer] Alina Galvin, RN RN Mary Kate May, Jean-Claude Reg Dawson Hernandez, RPA-C [id number] Deven Castillo RN RN jmb Beck, Gabriela gjb Smith, Mallory RN [id number] The chart was reviewed and I authenticate all verbal orders and agree with the evaluation and treatment provided.Attachments: 05/25 22:24 [facility] [place] gjb 05/26 11:20 T-Sheet-- Draft Copy gb Chart Complete MTDD
--- NOTE | 2016-05-28 01:18 | EDDOCDS ---
Physician Documentation [facility] Name: Rebekah Soto Age: 20 yrs Sex: Female : 1995 Arrival Date: 05/25/2016 Time: 18:17 Bed I7 Private MD: Other - Complete Info On Cds Disposition: 05/25/16 22:33 Discharged to Home/Self Care. Impression: Threatened . - Condition is Stable. - Discharge Instructions: Threatened Miscarriage, Pelvic Rest. - Medication Reconciliation, Local Pharmacy Hours form. - Follow up: [facility]; When: Tomorrow; Reason: Recheck today's complaints, Continuance of care. - Problem is new. - Symptoms have improved. - Notes: CALL [facility] TOMORROW, TELL THE NURSE THAT YOU WERE SEEN IN THE ER, DR AVENDAÑO WAS CONSULTED. YOU ARE TO HAVE A STAT QUANT HCG DRAWN ON 05/28/16 IN THE AM AT [facility] AND THEN HAVE A FOLLOW UP APPOINTMENT ON 05/28/16 IN THE AFTERNOON WITH [facility]. RETURN TO THE ER IF BLEEDING INTENSIFIES, INCREASED PAIN OR OTHER CONCERNING SYMPTOMS ARISE Historical: - Allergies: no known allergies; - Home Meds: 1. vits Unknown daily - PMHx: Migraines; - PSHx: none; - Social history: Smoking status: Patient/guardian denies using No barriers to communication noted, The patient speaks fluent Indonesian. - Family history: Not pertinent. - : The pt / caregiver states he / she is not on anticoagulants. Home medication list is obtained from the patient. - Exposure Risk Screening:: None identified. LINE SERVICER: 05/25 18:23 1, Full Term 0, Premature 0, 0, Living 0, LMP 04/09/2016 dls Vital Signs: 18:19 BP 142 / 84; Pulse 108; Resp 18 S; Temp 97.1(O); Pulse Ox 100% on R/A; Weight 74.84 kg gr2 / 164.99 lbs (R); Height 5 ft. 6 in. (167.64 cm) (R); Pain 3/10; 22:54 BP 128 / 85; Pulse 99; Resp 18; Temp 98.1(O); Pulse Ox 100% on R/A; Pain 0/10; kb5 05/26 00:16 BP 137 / 92; Pulse 110; Resp 16; Temp 97.8(O); Pulse Ox 98% on R/A; Pain 0/10; jmb 05/25 18:19 Body Mass Index 26.63 (74.84 kg, 167.64 cm) gr2 MDM: 05/25 19:25 IV Saline Lock ordered. ck7 19:25 NS 0.9% 1000 ml IV at bolus once ordered. ck7 19:25 Set up pelvic ordered. ck7 19:25 CBC with Diff Ordered. EDMS 19:25 MED Profile Ordered. EDMS 19:25 Type & Screen Ordered. EDMS 19:25 UA Ordered. EDMS 19:26 Urine Culture Ordered. EDMS 19:26 Hcg, Serum Quantitative Ordered. EDMS 19:26 GC & Chlamydia Amplification Ordered. EDMS 19:26 Wet Prep Ordered. EDMS 19:27 US 1st trimester Ordered. EDMS 20:17 TRANSVAGINAL US Ordered. EDMS 20:19 DUPLEX SCAN LIMITED (DOPPLER) Ordered. EDMS 20:38 Financial registration complete. gjb 21:53 CBC with Diff Reviewed. ck7 21:53 UA Reviewed. ck7 21:53 MED Profile Reviewed. ck7 21:53 Type & Screen Reviewed. ck7 21:53 Hcg, Serum Quantitative Reviewed. ck7 21:53 Wet Prep Reviewed. ck7 21:53 US 1st trimester Reviewed. ck7 21:54 Recheck Vital Signs, perform reassessment and enter into [employer] ordered. ck7 22:07 -RhoGAM Ultra-Filtered Plus 300 mcg IM once ordered. ck7 22:24 [facility] [place] was scanned into [employer] and attached to record. gjb 23:06 RHOGAM Ordered. EDMS 05/26 11:20 T-Sheet-- Draft Copy was scanned into [employer] and attached to record. gb 11:20 Consents was scanned into [employer] and attached to record. gb Administered Medications: 05/25 19:45 Drug: NS 0.9% 1000 ml [sodium chloride 0.9 % intravenous solution] Route: IV; Rate: jmb bolus; Site: left antecubital; 21:26 Follow up: IV Status: Completed infusion; IV Intake: 1000ml ms18 05/26 00:16 Drug: -RhoGAM Ultra-Filtered Plus 300 mcg [RhoGAM Ultra-Filtered PLUS 1,500 unit (300 jmb mcg) intramuscular syringe (300 mcg)] Route: IM; Site: right gluteus; Signatures: Dispatcher [employer] Alina Galvin, RN RN Mary Kate May, Jean-Claude Reg Dawson Hernandez, RPA-C [id number] Deven Castillo RN RN jmb Beck, Gabriela gjb Smith, Mallory RN [id number] The chart was reviewed and I authenticate all verbal orders and agree with the evaluation and treatment provided.Attachments: 05/25 22:24 [facility] [place] Agreement gjb 05/26 11:20 T-Sheet-- Draft Copy gb Chart Complete MTDD
== END 2016-05-26 00:17 | disposition home or self-care (01) ==
LOC: M ED 18:17
DX: O20.0 Threatened abortion (principal); O99.351 Diseases of the nervous system complicating pregnancy, first trimester; G43.909 Migraine, unspecified, not intractable, without status migrainosus; Z79.899 Other long term (current) drug therapy; Z3A.01 Less than 8 weeks gestation of pregnancy
CPT/HCPCS: 36415; 76801; 76817; 80048; 81001; 84702; 85025; 86850; 86900; 86901; 87086; 87210; 87491; 87591; 93976; 96360; 96361; 96372; 99285; J2790

== ENCOUNTER 2016-10-02 18:57 | Emergency (ER) | payer OTHER ==
[~2016-10-02] VITALS: Ht 165.1 cm; Wt 79.8 kg
[2016-10-02] MEDS ORDERED: prenatal vitamin PO (19:08)
[2016-10-02] MEDS ORDERED: NS 1,000 ML IV ONE (19:45)
[2016-10-02 19:57] LABS: BASO % 0.3 % (0.0-1.0); EOS # 0.2 K/mm3 (0.0-0.50); EOS % 1.6 % (0.0-3.0); LARGE UNSTAINED CELL # 0.1 K/mm3 (0.0-0.4); LARGE UNSTAINED CELL % 0.8 % (0.0-4.0); LYMPH # 1.5 K/mm3 (1.5-6.5); LYMPH % 15.9 % (24.0-44.0); MEAN CORPUSCULAR HEMOGLOBIN 30.2 pg (27.0-33.0); MEAN CORPUSCULAR HGB CONC 35.1 g/dl (32.0-36.5); MEAN CORPUSCULAR VOLUME 86.1 fl (80.0-96.0); MONO # 0.3 K/mm3 (0.0-0.8); MONO % 3.6 % (0.0-5.0); NEUTROPHILS # 7.1 K/mm3 (1.8-7.7); NEUTROPHILS % 77.8 % (36.0-66.0); PLATELET COUNT, AUTOMATED 218 k/mm3 (150-450); RED CELL DISTRIBUTION WIDTH 13.9 % (11.5-14.5); WHITE BLOOD COUNT 9.2 K/mm3 (4.0-10.0)
[2016-10-02 20:21] LABS: ALBUMIN 3.3 GM/DL (3.2-5.2); ALBUMIN/GLOBULIN RATIO 0.97 (1.00-1.93); ALKALINE PHOSPHATASE 62 U/L (45-117); ALT/SGPT 34 U/L (12-78); ANION GAP 10 MEQ/L (8-16); AST/SGOT 14 U/L (15-37); BILIRUBIN,DIRECT < 0.1 MG/DL (0.0-0.2); BILIRUBIN,TOTAL 0.3 MG/DL (0.2-1.0); BLOOD UREA NITROGEN 4 MG/DL (7-18); CALCIUM LEVEL 8.5 MG/DL (8.5-10.1); CARBON DIOXIDE LEVEL 22 MEQ/L (21-32); CHLORIDE LEVEL 106 MEQ/L (98-107); CREATININE FOR GFR 0.52 MG/DL (0.55-1.02); GLUCOSE, FASTING 98 MG/DL (70-105); POTASSIUM SERUM 3.6 MEQ/L (3.5-5.1); SODIUM LEVEL 138 MEQ/L (136-145); TOTAL PROTEIN 6.7 GM/DL (6.4-8.2)
[2016-10-02 21:04] VITALS: BP 118/70
--- NOTE | 2016-10-04 19:17 | ECGEPIP ---
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
== END 2016-10-02 21:13 | disposition home or self-care (01) ==
LOC: M ED 19:47
DX: R00.2 Palpitations (principal); Z79.899 Other long term (current) drug therapy; Z90.89 Acquired absence of other organs

== ENCOUNTER 2017-01-25 21:29 | Outpatient (CLI) | payer OTHER ==
[~2017-01-25] VITALS: Ht 165.1 cm; Wt 91.4 kg
[~2017-01-25 21:29] MED LIST: prenatal vitamin PO
[2017-01-25] MEDS ORDERED: UNIS25TA2 PO (21:43)
[2017-01-25] MEDS ORDERED: IRON65TA PO (21:43)
[2017-01-25 21:52] VITALS: BP 109/77
[2017-01-25 22:50] VITALS: BP 109/57
[2017-01-25 23:11] LABS: CALCIUM OXALATE CRYSTALS SMALL
[2017-01-25] MEDS ORDERED: CEPHALEXIN 250 MG CAP PO STA (23:31)
== END 2017-01-25 23:48 | disposition home or self-care (01) ==
LOC: M LDO 21:29
PROVIDERS: ATTEND Obstetrics & Gynecology
DX: O99.89 Other specified diseases and conditions complicating pregnancy, childbirth and the puerperium (principal); M54.5 Low back pain; O36.8130 Decreased fetal movements, third trimester, not applicable or unspecified; Z3A.34 34 weeks gestation of pregnancy; O23.43 Unspecified infection of urinary tract in pregnancy, third trimester; O26.893 Other specified pregnancy related conditions, third trimester

== ENCOUNTER 2017-03-16 06:17 | Inpatient (IN) | payer OTHER ==
[2017-03-16] VITALS (39 sets, daily range): BP systolic 109–186; BP diastolic 59–106
[~2017-03-16] VITALS: Ht 165.1 cm; Wt 93.8 kg
[~2017-03-16 06:17] MED LIST changes: +IRON65TA PO; +UNIS25TA2 PO
[2017-03-16] MEDS ORDERED: LACTATED RINGER'S 1000 ML IV STA (07:20)
[2017-03-16] MEDS ORDERED: AMPICILLIN SOD 2 GM in APPROPRIATE DILUENT 20 ML IV STA (07:20)
[2017-03-16] MEDS: LR 1,000 ML IV SCH ×3 (08:06→21:38)
[2017-03-16] MEDS ORDERED: miSOPROStol 50 MCG 1/2 TAB (S0191) PO ONE ×2 (08:15→09:00)
[2017-03-16 08:26] LABS: MEAN CORPUSCULAR HEMOGLOBIN 28.8 pg (27.0-33.0); MEAN CORPUSCULAR HGB CONC 33.8 g/dl (32.0-36.5); MEAN CORPUSCULAR VOLUME 85.4 fl (80.0-96.0); PLATELET COUNT, AUTOMATED 193 10^3/uL (150-450); RED CELL DISTRIBUTION WIDTH 14.6 % (11.5-14.5); WHITE BLOOD COUNT 9.1 10^3/uL (4.0-10.0)
[2017-03-16 08:43] LABS: ALBUMIN 2.5 GM/DL (3.2-5.2); ALBUMIN/GLOBULIN RATIO 0.76 (1.00-1.93); ALKALINE PHOSPHATASE 160 U/L (45-117); ALT/SGPT 18 U/L (12-78); ANION GAP 8 MEQ/L (8-16); AST/SGOT 13 U/L (7-37); BILIRUBIN,TOTAL 0.3 MG/DL (0.2-1.0); BLOOD UREA NITROGEN 2 MG/DL (7-18); CALCIUM LEVEL 8.1 MG/DL (8.5-10.1); CARBON DIOXIDE LEVEL 21 MEQ/L (21-32); CHLORIDE LEVEL 110 MEQ/L (98-107); CREATININE FOR GFR 0.41 MG/DL (0.55-1.02); GLUCOSE, FASTING 87 MG/DL (70-105); POTASSIUM SERUM 3.1 MEQ/L (3.5-5.1); SODIUM LEVEL 139 MEQ/L (136-145); TOTAL PROTEIN 5.8 GM/DL (6.4-8.2)
[2017-03-16] MEDS ORDERED: ONDANSETRON 4MG/2ML VIAL (J2405) IV ONE (08:45)
[2017-03-16] MEDS ORDERED: AMPICILLIN SOD 1 GM in APPROPRIATE DILUENT 10 ML IV SCH (11:30)
[2017-03-16] MEDS ORDERED: NALBUPHINE HCL 10 MG/ML AMP (J2300) IV ONE ×2 (13:15→16:45)
[2017-03-16] MEDS: OXYTOCIN DRIP 30 UNITS in APPROPRIATE DILUENT 1 EA IV SCH (14:36)
[2017-03-16] MEDS ORDERED: PENICILLIN G POTASSIUM IV 5 MU in D5W MINI-BAG PLUS 100 ML IV ONE (15:00)
[2017-03-16] MEDS ORDERED: AMPICILLIN SOD 2 GM in APPROPRIATE DILUENT 20 ML IV ONE (15:00)
[2017-03-16] MEDS ORDERED: FENTANYL 2MCG/ML ROPIVACAINE 0.2% IN 0.9% NACL 200ML IVBAG As Ordered ONE (17:47)
[2017-03-16] MEDS: AMPICILLIN SOD 1 GM in APPROPRIATE DILUENT 10 ML IV SCH ×2 (18:59→22:59)
[2017-03-16] MEDS ORDERED: NALOXONE INJ 0.4 MG/1 ML VIAL (J2310) IV PRN (19:00)
[2017-03-16] MEDS ORDERED: EPIDURAL/PCA KEYS XX PRN (19:00)
[2017-03-16] MEDS ORDERED: FENTANYL/ROPIVACAINE/NACL BAG 200 ML EPIDURAL SCH (19:00)
[2017-03-16] MEDS ORDERED: diphenhydrAMINE INJ 50MG/ML VIAL (J1200) IV PRN (19:00)
[2017-03-16] MEDS ORDERED: PENICILLIN G POTASSIUM IV 2.5 MU in APPROPRIATE DILUENT 1 EA IV SCH (19:00)
[2017-03-16] MEDS ORDERED: LACTATED RINGER'S 1000 ML IV PRN (19:00)
[2017-03-16] MEDS ORDERED: ePHEDrine SULFATE 25 MG/5 ML(5MG/ML) SYRINGE IV PRN (19:00)
[2017-03-16] MEDS ORDERED: REFRIGERATOR IV KEYS XX PRN (19:00)
[2017-03-16] MEDS ORDERED: EPIDURAL COMMENT XX SCH (19:00)
[2017-03-16] MEDS ORDERED: ONDANSETRON 4MG/2ML VIAL (J2405) IV PRN (19:00)
[2017-03-17] VITALS (7 sets, daily range): BP systolic 118–152; BP diastolic 66–85
[2017-03-17] MEDS ORDERED: METHYLERGONOVINE MALEATE 0.2 MG TAB PO PRN (00:45)
[2017-03-17] MEDS ORDERED: DOCUSATE SODIUM 100 MG CAP PO PRN (00:45)
[2017-03-17] MEDS ORDERED: METOCLOPRAMIDE INJ 10MG/2ML VIAL (J2765) IV PRN (00:45)
[2017-03-17] MEDS ORDERED: MEASLES,MUMPS,RUBELLA VACCINE INJ (MMR-II) (90707) SC SCH (00:45)
[2017-03-17] MEDS ORDERED: ACETAMINOPHEN 500 MG TAB PO PRN (00:45)
[2017-03-17] MEDS ORDERED: RHOGAM 300 MCG (1500 IU) INJ (J2790) IM SCH (00:45)
[2017-03-17] MEDS ORDERED: MOM 30ML SUSPENSION UDC PO PRN (00:45)
[2017-03-17] MEDS ORDERED: DIBUCAINE 1% OINTMENT 30GM TOP PRN (00:45)
[2017-03-17] MEDS ORDERED: PROMETHAZINE 25 MG TAB PO PRN (00:45)
[2017-03-17] MEDS: IBUPROFEN 800 MG TAB PO PRN ×2 (01:49→22:11)
[2017-03-17] MEDS: AMPICILLIN SOD 1 GM in APPROPRIATE DILUENT 10 ML IV SCH (03:00)
[2017-03-17] MEDS: PRENATAL VITAMINS CHEWABLE TABLET PO SCH (09:09)
[2017-03-18 06:24] VITALS: BP 133/87
[2017-03-18] MEDS: PRENATAL VITAMINS CHEWABLE TABLET PO SCH (08:28)
[2017-03-18] MEDS: OXYTOCIN DRIP 30 UNITS in APPROPRIATE DILUENT 1 EA IV SCH (14:54)
[2017-03-18 18:29] VITALS: BP 132/79
[2017-03-19 07:04] VITALS: BP 137/80
[2017-03-19] MEDS: PRENATAL VITAMINS CHEWABLE TABLET PO SCH (07:54)
[2017-03-19] MEDS ORDERED: ACET50TA PO (09:18)
[2017-03-19] MEDS ORDERED: IBUP-1114 PO (09:19)
[2017-03-19] MEDS ORDERED: COLA100C5 PO (09:19)
--- NOTE | 2017-03-19 15:16 | IPN ---
DATE: 03/18/2017 day #1. This lady is a 21-year-old 2, para 1 now who was admitted to 41 weeks for induction of labor. She had a spontaneous vaginal delivery live female , 3340 grams, scores of 9 and 9 at 1 and 5 minutes, respectively. She was GBS positive in urine, Rh negative, and she sustained a second-degree tear. On her first day, we discussed phlebitis, cystitis, mastitis, endometritis and cellulitis, diet, exercise, pain management, perineal, breast and wound care. She was administered her medications to be taken home. We await to discharge the baby and possibly send her home today. Her vital signs today: Her blood pressure is 133/87, respirations 18, pulse 83 and temperature is 98.4. Her hemoglobin 10.7, hematocrit 31.7, platelets are 193. The rest of the examination is unremarkable. She is normocephalic, atraumatic. Neck with full range of motion. Pupils equal and reactive to light. Distal pulses symmetric. No evidence of DVT, PE or superficial phlebitis. No wheezes or rhonchi. Chest is clear bilaterally to the bases. Uterus is nontender, 2 below. Lochia is moderate. Four quadrant bowel sounds are noted. Perineum is healing. No rashes, lesions or pruritus. No arthralgia or myalgia. No complaints of cough, wheezes, shortness of breath or dyspnea on exertion. No chest pain and not bleeding. Neuro complete. No incontinence, urgency, or frequency. No nausea, vomiting, diarrhea or constipation. No diabetic issues. Past medical, surgical, and family history noncontributory. She does not smoke, drink, abuse drugs. 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 No domestic violence. She has good support. In summary, we have a late term gestation for induction of labor,confined Anxious to go home. Breast feeding is going well. MTDD
== END 2017-03-19 11:00 | disposition home or self-care (01) | DRG 775 ==
LOC: M LDI 06:17 → M OBS 03-17 02:11
PROVIDERS: ADMIT Obstetrics & Gynecology; ATTEND Obstetrics & Gynecology
PROC: 10E0XZZ Delivery of Products of Conception, External Approach (ICD-10-PCS; principal; 2017-03-17)
PROC: 0KQM0ZZ Repair Perineum Muscle, Open Approach (ICD-10-PCS; 2017-03-17)
PROC: 0HQ9XZZ Repair Perineum Skin, External Approach (ICD-10-PCS; 2017-03-17)
DX: O48.0 Post-term pregnancy (principal); O36.0930 Maternal care for other rhesus isoimmunization, third trimester, not applicable or unspecified; Z37.0 Single live birth; Z3A.41 41 weeks gestation of pregnancy; O99.820 Streptococcus B carrier state complicating pregnancy; D64.9 Anemia, unspecified; O99.013 Anemia complicating pregnancy, third trimester; O70.1 Second degree perineal laceration during delivery; O70.0 First degree perineal laceration during delivery

== ENCOUNTER 2017-08-12 03:09 | Emergency (ER) | payer OTHER ==
[2017-08-12 04:37] LABS: BASO % 0.3 % (0.0-1.0); EOS % 0.3 % (0.0-3.0); HEMATOCRIT 37.1 % (36.0-47.0); HEMOGLOBIN 12.4 g/dl (12.0-15.5); IMMATURE GRANULOCYTE % 0.4 % (0-3.0); LYMPH # 2.2 10^3/uL (1.5-6.5); LYMPH % 22.1 % (24.0-44.0); MEAN CORPUSCULAR HEMOGLOBIN 28.2 pg (27.0-33.0); MEAN CORPUSCULAR HGB CONC 33.4 g/dl (32.0-36.5); MEAN CORPUSCULAR VOLUME 84.3 fl (80.0-96.0); MONO # 0.6 10^3/uL (0.0-0.8); MONO % 5.9 % (0.0-5.0); PLATELET COUNT, AUTOMATED 273 10^3/uL (150-450); RED CELL DISTRIBUTION WIDTH 13.5 % (11.5-14.5); WHITE BLOOD COUNT 9.8 10^3/uL (4.0-10.0)
[2017-08-12] MEDS: KETOROLAC 30 MG/ML VIAL (J1885) IV (04:43)
[2017-08-12] MEDS: NS 1,000 ML IV (04:43)
[2017-08-12 04:51] LABS: CONTROL LINE HCG INT CTR LINE PRESENT; HCG, SERUM QUALITATIVE NEGATIVE (NEGATIVE)
[2017-08-12 05:01] LABS: ALBUMIN 3.6 GM/DL (3.2-5.2); ALBUMIN/GLOBULIN RATIO 0.97 (1.00-1.93); ALKALINE PHOSPHATASE 61 U/L (45-117); ALT/SGPT 15 U/L (12-78); ANION GAP 6 MEQ/L (8-16); AST/SGOT 11 U/L (7-37); BILIRUBIN,DIRECT < 0.1 MG/DL (0.0-0.2); BILIRUBIN,TOTAL 0.2 MG/DL (0.2-1.0); BLOOD UREA NITROGEN 14 MG/DL (7-18); CALCIUM LEVEL 8.3 MG/DL (8.5-10.1); CARBON DIOXIDE LEVEL 25 MEQ/L (21-32); CHLORIDE LEVEL 109 MEQ/L (98-107); CREATININE FOR GFR 0.79 MG/DL (0.55-1.30); GLUCOSE, FASTING 94 MG/DL (70-100); LIPASE 89 U/L (73-393); POTASSIUM SERUM 3.9 MEQ/L (3.5-5.1); SODIUM LEVEL 140 MEQ/L (136-145); TOTAL PROTEIN 7.3 GM/DL (6.4-8.2)
[2017-08-12 05:41] LABS: APPEARANCE, URINE HAZY (CLEAR); BACTERIA, URINE AUTO NEGATIVE (NEGATIVE); BILIRUBIN, URINE AUTO NEGATIVE (NEGATIVE); BLOOD, URINE BLOOD NEGATIVE (NEGATIVE); COLOR, URINE YELLOW (YELLOW); GLUCOSE, URINE (UA) AUTO NEGATIVE (NEGATIVE); KETONE, URINE AUTO NEGATIVE (NEGATIVE); LEUKOCYTE ESTERASE, URINE AUTO TRACE (NEGATIVE); MUCUS, URINE SMALL (NEGATIVE); NITRITE, URINE AUTO NEGATIVE (NEGATIVE); PROTEIN, URINE AUTO NEGATIVE (NEGATIVE); RBC, URINE AUTO 2 /HPF (0-3); SPECIFIC GRAVITY URINE AUTO 1.031 (1.002-1.035); SQUAMOUS EPITHELIAL CELL UR AU 3 /HPF (0-6); UROBILINOGEN, URINE AUTO 0.2 mg/dL (0.0-2.0); WBC, URINE AUTO 3 /HPF (0-3)
== END 2017-08-12 06:57 | disposition home or self-care (01) ==
LOC: M ED 03:09
DX: M54.9 Dorsalgia, unspecified (principal); Z97.5 Presence of (intrauterine) contraceptive device
CPT/HCPCS: J1885